=== PATIENT | female | born 1995 | race African-American/Black ===

== ENCOUNTER 2016-06-21 19:06 | Emergency (ER) | payer MEDICAID ==
[~2016-06-21] VITALS: Ht 167.6 cm; Wt 120.0 kg
[~2016-06-21 19:06] MED LIST: METF10002 PO; [UNRECOGNIZED DRUG - OTHER]
[2016-06-21 20:05] VITALS: BP 129/67
[2016-06-21] MEDS ORDERED: SODIUM CHLORIDE 0.9% 1,000 ML IV ONE (20:59)
[2016-06-21] MEDS ORDERED: MECLIZINE 25MG TABLET PO ONE (21:00)
[2016-06-21] MEDS ORDERED: ONDANSETRON HCL 4MG/2ML VIAL IV ONE (21:00)
[2016-06-21 21:31] LABS: BASOPHILS % 1.1 % (0.0-2.0); EOSINOPHILS % 0.7 % (0.0-5.0); HEMATOCRIT. 38.3 % (36.0-48.0); HEMOGLOBIN. 12.9 g/dL (12.0-16.0); LYMPHOCYTES % 37.1 % (20.0-50.0); MEAN CORPUSCULAR HEMOGLOBIN 28.4 pg (28.0-32.0); MEAN CORPUSCULAR HGB CONC 33.6 g/dL (31.0-37.0); MEAN CORPUSCULAR VOLUME 84.5 fL (81.0-99.0); MEAN PLATELET VOLUME 8.7 fl (7.4-10.4); MONOCYTES % 9.3 % (2.0-8.0); NEUTROPHILS % 51.8 % (40.0-76.0); PLATELET 323 x1000/uL (130-400); RED BLOOD CELL COUNT 4.53 mill/uL (4.2-5.4); RED CELL DISTRIBUTION WIDTH 14.3 % (11.6-14.6); WHITE BLOOD COUNT 10.6 x1000/uL (4.5-11.0)
[2016-06-21 21:33] LABS: CHLORIDE 102 mEq/L (98-107); INDEX HEMOLYSI 1 (1-3); INDEX ICTERIC 1 (1-4); INDEX LIPEMIC 1 (1-3)
[2016-06-21 21:38] LABS: ANION GAP 15; CALCIUM 8.7 mg/dL (8.5-10.1); CARBON DIOXIDE 26 mEq/L (21-32); UREA NITROGEN BLOOD 10 mg/dL (7-21); eGFR > 60 mL/min (>60)
[2016-06-21 21:43] LABS: HCG SCREEN NEGATIVE
== END 2016-06-22 00:16 | disposition home or self-care (01) ==
LOC: ER 19:06
DX: R42 Dizziness and giddiness (principal); R55 Syncope and collapse; E11.9 Type 2 diabetes mellitus without complications; I10 Essential (primary) hypertension; E03.9 Hypothyroidism, unspecified; Z79.84 Long term (current) use of oral hypoglycemic drugs; Z79.899 Other long term (current) drug therapy; Z79.4 Long term (current) use of insulin; Z85.71 Personal history of Hodgkin lymphoma
CPT/HCPCS: 36415; 80048; 84703; 85025; 93005; 96361; 96374; 99285; J2405; J7030; Z7610; J8597

== ENCOUNTER 2022-01-25 22:19 | Emergency (ER) | payer MEDICAID ==
[~2022-01-25 22:19] MED LIST changes: +METF-416 PO; -METF10002 PO
== END 2022-01-26 00:59 | disposition left against medical advice (07) ==
LOC: ER 22:19
DX: Z53.21 Procedure and treatment not carried out due to patient leaving prior to being seen by health care provider (principal)